=== PATIENT | female | born 1995 | race African-American/Black ===

== ENCOUNTER 2017-03-29 08:41 | Emergency (ER) | payer SELFPAY | END 2017-03-29 09:15 | disposition home or self-care (01) | LOC: ERS 08:41 | DX: B34.9 Viral infection, unspecified (principal) | CPT/HCPCS: 99283 ==

== ENCOUNTER 2017-03-31 08:48 | Emergency (ER) | payer SELFPAY | END 2017-03-31 09:52 | disposition home or self-care (01) | LOC: ERS 08:48 | DX: J11.1 Influenza due to unidentified influenza virus with other respiratory manifestations (principal) | CPT/HCPCS: 99283 ==

== ENCOUNTER 2017-07-25 09:26 | Emergency (ER) | payer SELFPAY | END 2017-07-25 10:11 | disposition home or self-care (01) | LOC: ERS 09:26 | DX: H11.31 Conjunctival hemorrhage, right eye (principal) | CPT/HCPCS: 99283 ==

== ENCOUNTER 2017-08-26 16:42 | Emergency (ER) | payer SELFPAY ==
[2017-08-26 17:07] LABS: Bilirubin Negative (Negative); Blood, Urine Negative (Negative); Clarity CLOUDY (Clear); Glucose, Urine (Dipstick) Negative (Negative); Leukocyte Negative (Negative); Nitrite Negative (Negative); Protein, Urine (Dipstick) Trace mg/dL (Neg-Trace); Specific Gravity, Urine 1.017 (1.002-1.036)
[2017-08-26 17:09] LABS: Pregnancy Test - Urine (BHCG) Negative (Negative); Pregu Control Background? CLEAR/WHITE (CLR/WHITE); Pregu Control Bar Appear? YES (CONTROL BAR); Specific Gravity 1.017 (1.002-1.036)
[2017-08-26] MEDS ORDERED: Ondansetron ODT 4 MG TAB ONE (17:17)
== END 2017-08-26 17:50 | disposition home or self-care (01) ==
LOC: ERS 16:42
DX: R11.0 Nausea (principal)
CPT/HCPCS: 81003; 81025; 99283; Q0162

== ENCOUNTER 2018-05-05 14:02 | Emergency (ER) | payer MEDICAID, SELFPAY ==
[2018-05-05 14:29] LABS: Bilirubin Negative (Negative); Blood, Urine Negative (Negative); Clarity CLEAR (Clear); Glucose, Urine (Dipstick) Negative (Negative); Leukocyte Negative (Negative); Nitrite Negative (Negative); Protein, Urine (Dipstick) Negative (Neg-Trace); Specific Gravity, Urine 1.015 (1.002-1.036)
[2018-05-05 14:34] LABS: #Lymphocytes 1.3 thou/uL (1.20-3.40); #Monocytes 0.6 thou/uL (0.11-0.59); #Neutrophils 4.7 thou/uL (1.40-6.50); %Basophils 0.5 % (0.0-1.0); %Eosinophils 0.5 % (0.0-10.0); %Lymphocytes 19.4 % (21.0-51.0); %Monocytes 8.6 % (0.0-10.0); %Neutrophils 71.1 % (42.0-75.0); Hemoglobin 12.7 g/dL (12.0-16.0); Mean Corpuscular HGB CONC 33.6 g/dL (32.0-36.0); Mean Corpuscular Hemoglobin 29.9 pg (27.0-31.0); Mean Corpuscular Volume 88.9 fL (78.0-98.0); Mean Platelet Volume 7.9 fL (7.4-10.4); Platelet Count 350 thou/uL (130-400); RBC Distribution Width 11.1 % (11.5-14.5); Red Blood Cell (RBC) Count 4.24 mill/uL (4.20-5.40); White Blood Cell (WBC) Count 6.6 thou/uL (4.8-10.8)
[2018-05-05 14:55] LABS: ALT (SGPT) Less than 7 U/L (8-55); AST (SGOT) 12 U/L (5-34); Albumin 4.3 g/dL (3.5-5.0); Alkaline Phosphatase 60 U/L (40-150); Anion Gap 13 mmol/L (10-20); BUN (Urea Nitrogen) 8 mg/dL (7.0-18.7); Bilirubin, Total 0.5 mg/dL (0.2-1.2); Calc. Creatinine Clearance 0 mL/min (70-130); Calcium 9.7 mg/dL (7.8-10.44); Carbon Dioxide 23 mmol/L (22-29); Chloride 104 mmol/L (98-107); Estimated GFR-MDRD Greater than 90; Globulin 3.2 g/dL (2.4-3.5); Glucose 86 mg/dL (70-105); Potassium 3.8 mmol/L (3.5-5.1); Protein, Total 7.5 g/dL (6.0-8.3); Sodium 136 mmol/L (136-145)
--- NOTE | 2018-05-05 16:51 | ULT ---
OBSTETRIC SONOGRAM TRANSABDOMINAL AND TRANSVAGINAL IMAGING WITH DUPLEX EVALUATION 05/05/18 HISTORY: Pelvic pain. Early . FINDINGS: Urinary bladder is incompletely distended. Gestational sac within the endometrial cavity contains a s mall yolk sac. pole not visualized. Measurements correlate with 5 weeks, 2 days gestational siz e. Small amount of fluid within the endometrial cavity outside of the gestational sac. No free fluid in the pelvis. Right ovary not well visualized. Left ovary is 3.1 cm with good color and spectral doppler flow. IMPRESSION: Very early gestational sac within the endometrial cavity, correlating with 5 weeks, 2 days gestationa l age. Some subchorionic hemorrhage is apparent. pole not yet visualized. Please consider close d continued clinical and sonographic followup. POS: [facility]
== END 2018-05-05 18:15 | disposition home or self-care (01) ==
LOC: ERS 14:02
DX: O99.89 Other specified diseases and conditions complicating pregnancy, childbirth and the puerperium (principal); R10.9 Unspecified abdominal pain; Z3A.01 Less than 8 weeks gestation of pregnancy
CPT/HCPCS: 36415; 76856; 80053; 81003; 84702; 85025; 86900; 86901

== ENCOUNTER 2018-05-31 17:50 | Emergency (ER) | payer MEDICAID, OTHER ==
[2018-05-31] MEDS ORDERED: Acetaminophen 325 MG TAB ONE (18:09)
[2018-05-31 18:46] LABS: #Basophils 0.1 thou/uL (0.0-0.2); #Lymphocytes 1.3 thou/uL (1.20-3.40); #Monocytes 0.7 thou/uL (0.11-0.59); #Neutrophils 3.5 thou/uL (1.40-6.50); %Basophils 1.5 % (0.0-1.0); %Eosinophils 0.7 % (0.0-10.0); %Lymphocytes 23.9 % (21.0-51.0); %Monocytes 12.3 % (0.0-10.0); %Neutrophils 61.7 % (42.0-75.0); Hemoglobin 12.5 g/dL (12.0-16.0); Mean Corpuscular HGB CONC 34.6 g/dL (32.0-36.0); Mean Corpuscular Hemoglobin 30.9 pg (27.0-31.0); Mean Corpuscular Volume 89.4 fL (78.0-98.0); Mean Platelet Volume 7.9 fL (7.4-10.4); Platelet Count 308 thou/uL (130-400); RBC Distribution Width 11.2 % (11.5-14.5); Red Blood Cell (RBC) Count 4.03 mill/uL (4.20-5.40); White Blood Cell (WBC) Count 5.6 thou/uL (4.8-10.8)
[2018-05-31 19:05] LABS: Bilirubin Negative (Negative); Blood, Urine Negative (Negative); Clarity CLEAR (Clear); Glucose, Urine (Dipstick) Negative (Negative); Leukocyte Negative (Negative); Nitrite Negative (Negative); Protein, Urine (Dipstick) Negative (Neg-Trace); Specific Gravity, Urine 1.004 (1.002-1.036); Urobilinogen 0.2 mg/dL (0.2-1.0)
--- NOTE | 2018-05-31 20:07 | ULT ---
OB ULTRASOUND: History: Pelvic cramping and pain. Patient with known history of . Technique: Multiple longitudinal and transverse images of an intrauterine is obtained using a multihertz curvilinear transducer. Real-time, color flow, and spectral waveform doppler analysis p erformed. FINDINGS: The uterus measures 9.2 x 5.4 x 6.6 cm. There is a viable intrauterine seen. The crown rump length measures 2.2 cm giving a gestational age of 8 weeks 6 days. Gestational sac measures 3.7 cm g iving a gestational age of 9 weeks 0 days. Yolk sac is present. Cardiac activity is seen measuring 17 5 beats/minute. Both ovaries are visualized. Right ovary measures 4.3 x 2.0 x 2.5 cm and the left ovary measuring 3.6 x 1.7 x 1.7 cm. Good blood flow is seen in both ovaries. IMPRESSION: Viable IUP. Estimated gestational age is 9 weeks 0 days with an SHANTI 10-20-19. POS: [facility]
[2018-06-03 00:46] LABS: Chlamydia by PCR Not Detected (NotDetected); GC by PCR Not Detected (NotDetected)
== END 2018-05-31 21:05 | disposition home or self-care (01) ==
LOC: ERS 17:50
DX: O23.591 Infection of other part of genital tract in pregnancy, first trimester (principal); O99.89 Other specified diseases and conditions complicating pregnancy, childbirth and the puerperium; R10.32 Left lower quadrant pain; Z3A.09 9 weeks gestation of pregnancy
CPT/HCPCS: 36415; 76856; 81003; 84702; 85025; 86900; 86901; 87086; 87480; 87491; 87510; 87591; 87660; 93976

== ENCOUNTER 2018-06-09 22:42 | Emergency (ER) | payer OTHER ==
[2018-06-09 23:16] LABS: Bilirubin Negative (Negative); Blood, Urine Negative (Negative); Clarity CLOUDY (Clear); Glucose, Urine (Dipstick) Negative (Negative); Leukocyte Negative (Negative); Nitrite Negative (Negative); Protein, Urine (Dipstick) Negative (Neg-Trace); Specific Gravity, Urine 1.011 (1.002-1.036); Urobilinogen 0.2 mg/dL (0.2-1.0); pH, Urine 5.5 (5.0-9.0)
[2018-06-09 23:23] LABS: #Lymphocytes 1.5 thou/uL (1.20-3.40); #Monocytes 0.5 thou/uL (0.11-0.59); #Neutrophils 4.5 thou/uL (1.40-6.50); %Basophils 0.6 % (0.0-1.0); %Eosinophils 0.5 % (0.0-10.0); %Monocytes 8.2 % (0.0-10.0); %Neutrophils 67.7 % (42.0-75.0); Hemoglobin 12.2 g/dL (12.0-16.0); Mean Corpuscular HGB CONC 34.4 g/dL (32.0-36.0); Mean Corpuscular Hemoglobin 30.3 pg (27.0-31.0); Platelet Count 280 thou/uL (130-400); RBC Distribution Width 10.9 % (11.5-14.5); Red Blood Cell (RBC) Count 4.02 mill/uL (4.20-5.40); White Blood Cell (WBC) Count 6.6 thou/uL (4.8-10.8)
--- NOTE | 2018-06-10 08:23 | ULT ---
PELVIC ULTRASOUND WITH DOPPLER COLOR FLOW: ABDOMEN ULTRASOUND , LIMITED: INDICATION: Left lower abdominal/left lower quadrant pain. COMPARISON: Reference is made to 05/31/2018 exam. FINDINGS: A live intrauterine gestation is present which by ultrasound imaging corresponds to a 9-week 6-day ge station. cardiac activity is documented at 168 b.p.m. On the basis of sonographic imaging, es timated date of delivery of 01/07/2019. There is no evidence of subchorionic hemorrhage. Doppler as sessment reveals flow to the right ovary. The left ovary is not visualized for comment. Lopez scale and Doppler color flow imaging of the left lower quadrant is performed which reveals heter ogeneity and persistent bowel content which precludes reliably assessment. No obvious focal fluid co llection is discerned within this region. IMPRESSION: 1. Early live intrauterine gestation as above. Recommend continued imaging followup as clinically i ndicated. 2. Left lower abdominal ultrasound, limited. 3. Persistent heterogeneity of the left lower quadrant related to bowel gas precluding reliable visu alization of this region. No focal fluid collection is identified. POS: [facility]
== END 2018-06-10 02:32 | disposition home or self-care (01) ==
LOC: ERS 22:42
DX: O21.9 Vomiting of pregnancy, unspecified (principal); Z3A.10 10 weeks gestation of pregnancy
CPT/HCPCS: 36415; 76856; 81003; 84702; 85025; 93976

== ENCOUNTER 2018-06-17 13:41 | Emergency (ER) | payer OTHER ==
[2018-06-17 14:56] LABS: #Basophils 0.1 thou/uL (0.0-0.2); #Lymphocytes 1.4 thou/uL (1.20-3.40); #Monocytes 0.7 thou/uL (0.11-0.59); #Neutrophils 4.2 thou/uL (1.40-6.50); %Eosinophils 0.5 % (0.0-10.0); %Monocytes 10.2 % (0.0-10.0); %Neutrophils 66.3 % (42.0-75.0); Mean Corpuscular HGB CONC 34.4 g/dL (32.0-36.0); Mean Corpuscular Hemoglobin 30.5 pg (27.0-31.0); Mean Corpuscular Volume 88.5 fL (78.0-98.0); Platelet Count 293 thou/uL (130-400); RBC Distribution Width 11.1 % (11.5-14.5); Red Blood Cell (RBC) Count 4.25 mill/uL (4.20-5.40); White Blood Cell (WBC) Count 6.3 thou/uL (4.8-10.8)
[2018-06-17 15:02] LABS: BHCG - Serum POSITIVE (NEGATIVE); Pregs Control Background? CLEAR/WHITE (CLR/WHITE); Pregs Control Bar Appear? YES (CONTROL BAR)
[2018-06-17 15:09] LABS: ALT (SGPT) 13 U/L (8-55); AST (SGOT) 15 U/L (5-34); Alkaline Phosphatase 47 U/L (40-150); Anion Gap 8 mmol/L (10-20); BUN (Urea Nitrogen) 8 mg/dL (7.0-18.7); Bilirubin, Total 0.4 mg/dL (0.2-1.2); Calc. Creatinine Clearance 0 mL/min (70-130); Calcium 9.6 mg/dL (7.8-10.44); Carbon Dioxide 26 mmol/L (22-29); Chloride 102 mmol/L (98-107); Estimated GFR-MDRD Greater than 90; Globulin 3.2 g/dL (2.4-3.5); Glucose 79 mg/dL (70-105); Lipase 24 U/L (8-78); Potassium 4.2 mmol/L (3.5-5.1); Protein, Total 7.2 g/dL (6.0-8.3); Sodium 132 mmol/L (136-145)
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
[2018-06-17 15:56] LABS: Bilirubin Negative (Negative); Blood, Urine Negative (Negative); Clarity CLOUDY (Clear); Glucose, Urine (Dipstick) Negative (Negative); Leukocyte Negative (Negative); Nitrite Negative (Negative); Protein, Urine (Dipstick) Negative (Neg-Trace); Specific Gravity, Urine 1.006 (1.002-1.036); Urobilinogen 0.2 mg/dL (0.2-1.0); pH, Urine 6.5 (5.0-9.0)
== END 2018-06-17 16:13 | disposition home or self-care (01) ==
LOC: ERS 13:41
DX: O99.89 Other specified diseases and conditions complicating pregnancy, childbirth and the puerperium (principal); R10.9 Unspecified abdominal pain; Z3A.11 11 weeks gestation of pregnancy
CPT/HCPCS: 36415; 76856; 80053; 81003; 83690; 84702; 84703; 85025; 86900; 86901; 87086

== ENCOUNTER 2018-06-23 22:37 | Emergency (ER) | payer OTHER ==
[2018-06-23 23:04] LABS: Bilirubin Negative (Negative); Blood, Urine Negative (Negative); Clarity CLEAR (Clear); Glucose, Urine (Dipstick) Negative (Negative); Leukocyte Negative (Negative); Nitrite Negative (Negative); Protein, Urine (Dipstick) Negative (Neg-Trace); Specific Gravity, Urine 1.007 (1.002-1.036); Urobilinogen 0.2 mg/dL (0.2-1.0)
[2018-06-23 23:14] LABS: #Basophils 0.1 thou/uL (0.0-0.2); #Lymphocytes 1.5 thou/uL (1.20-3.40); #Monocytes 0.5 thou/uL (0.11-0.59); #Neutrophils 3.9 thou/uL (1.40-6.50); %Eosinophils 0.2 % (0.0-10.0); %Lymphocytes 25.1 % (21.0-51.0); %Monocytes 8.6 % (0.0-10.0); %Neutrophils 65.1 % (42.0-75.0); Hemoglobin 11.8 g/dL (12.0-16.0); Mean Corpuscular HGB CONC 34.8 g/dL (32.0-36.0); Mean Corpuscular Hemoglobin 30.4 pg (27.0-31.0); Mean Corpuscular Volume 87.3 fL (78.0-98.0); Mean Platelet Volume 8.1 fL (7.4-10.4); Platelet Count 283 thou/uL (130-400); Red Blood Cell (RBC) Count 3.89 mill/uL (4.20-5.40)
[2018-06-23 23:36] LABS: ALT (SGPT) 15 U/L (8-55); AST (SGOT) 17 U/L (5-34); Alkaline Phosphatase 41 U/L (40-150); Anion Gap 11 mmol/L (10-20); BUN (Urea Nitrogen) 7 mg/dL (7.0-18.7); Bilirubin, Total 0.3 mg/dL (0.2-1.2); Calc. Creatinine Clearance 0 mL/min (70-130); Calcium 9.6 mg/dL (7.8-10.44); Carbon Dioxide 26 mmol/L (22-29); Chloride 102 mmol/L (98-107); Estimated GFR-MDRD Greater than 90; Glucose 75 mg/dL (70-105); Potassium 3.5 mmol/L (3.5-5.1); Sodium 135 mmol/L (136-145)
== END 2018-06-24 00:49 | disposition home or self-care (01) ==
LOC: ERS 22:37
DX: O99.89 Other specified diseases and conditions complicating pregnancy, childbirth and the puerperium (principal); R10.30 Lower abdominal pain, unspecified; Z3A.12 12 weeks gestation of pregnancy
CPT/HCPCS: 80053; 81003; 84702; 85025; 99284

== ENCOUNTER 2018-07-14 00:49 | Emergency (ER) | payer OTHER ==
[2018-07-14 01:33] LABS: #Basophils 0.1 thou/uL (0.0-0.2); #Lymphocytes 1.5 thou/uL (1.20-3.40); #Monocytes 0.5 thou/uL (0.11-0.59); #Neutrophils 5.5 thou/uL (1.40-6.50); %Basophils 0.9 % (0.0-1.0); %Eosinophils 0.4 % (0.0-10.0); %Neutrophils 71.7 % (42.0-75.0); Hemoglobin 12.5 g/dL (12.0-16.0); Mean Corpuscular HGB CONC 34.9 g/dL (32.0-36.0); Mean Corpuscular Hemoglobin 30.5 pg (27.0-31.0); Mean Corpuscular Volume 87.6 fL (78.0-98.0); Mean Platelet Volume 8.4 fL (7.4-10.4); Platelet Count 283 thou/uL (130-400); RBC Distribution Width 11.4 % (11.5-14.5); Red Blood Cell (RBC) Count 4.09 mill/uL (4.20-5.40); White Blood Cell (WBC) Count 7.7 thou/uL (4.8-10.8)
[2018-07-14 01:51] LABS: ALT (SGPT) 14 U/L (8-55); AST (SGOT) 14 U/L (5-34); Albumin 3.7 g/dL (3.5-5.0); Alkaline Phosphatase 45 U/L (40-150); Anion Gap 12 mmol/L (10-20); BUN (Urea Nitrogen) 6 mg/dL (7.0-18.7); Bilirubin, Total 0.3 mg/dL (0.2-1.2); Calc. Creatinine Clearance 0 mL/min (70-130); Calcium 9.5 mg/dL (7.8-10.44); Carbon Dioxide 23 mmol/L (22-29); Chloride 104 mmol/L (98-107); Estimated GFR-MDRD Greater than 90; Globulin 3.2 g/dL (2.4-3.5); Glucose 96 mg/dL (70-105); Potassium 3.5 mmol/L (3.5-5.1); Protein, Total 6.9 g/dL (6.0-8.3); Sodium 135 mmol/L (136-145)
[2018-07-14 01:57] LABS: Pregnancy Test - Urine (BHCG) POSITIVE (Negative); Pregu Control Background? CLEAR/WHITE (CLR/WHITE); Pregu Control Bar Appear? YES (CONTROL BAR)
[2018-07-14 01:58] LABS: Bilirubin Negative (Negative); Blood, Urine Negative (Negative); Clarity CLEAR (Clear); Glucose, Urine (Dipstick) Negative (Negative); Leukocyte Negative (Negative); Nitrite Negative (Negative); Protein, Urine (Dipstick) Negative (Neg-Trace); Specific Gravity 1.012 (1.002-1.036); Specific Gravity, Urine 1.012 (1.002-1.036); Urobilinogen 0.2 mg/dL (0.2-1.0); pH, Urine 5.5 (5.0-9.0)
--- NOTE | 2018-07-14 09:56 | ULT ---
PRELIMINARY REPORT/[facility]/EMERGENTY AFTER-HOURS PROCEDURE US , Limited EXAM DATE/TIME: 07/14/2018 2:53 AM CLINICAL HISTORY: 22 years old, female; pain, second trimester gestational age 15w 2d; Antepartum complicatio ns; Pelvic cramping pain, constipation, no vaginal bleeding.. b-hcg = 18784. TECHNIQUE: Imaging protocol: Real-time ultrasound of the maternal uterus with image documentation. Exam focused on the clinical indication. COMPARISON: No relevant prior studies available. FINDINGS: BPD: 2.88 cm. HC: 11.41 cm. AC: 9.08 cm. FL: 1.71 cm. Gestational age: 15 weeks, 2 days. Placental position: Anterior. No placenta previa. GRABIEL: Normal. presentation: Transverse. EDC: 01/03/2019. heart rate: 150 bpm. spine, kidneys, 4-chamber heart, stomach, cord insertion, and 3-vessel cord identified. IMPRESSION: 1. Single live intrauterine with gestational age of 15 weeks, 2 days. 2. heart rate equals 150 bpm. 3. Normal amniotic fluid volume. 4. No placenta previa. Thank you for allowing us to participate in the care of your patient. Dictated and Authenticated by: Marcelo Rosado MD 07/14/2018 3:40 AM Central Time ([place] & [place]) FINAL REPORT PELVIC ULTRASOUND WITH DOPPLER: I agree with the preliminary report provided. There is a single live intrauterine gestation. Cervical length was 5.4 cm. There is no evidence of previa; however, the anterior placenta is slightly low-lying with the tip terminating approximately 1 cm from the cervix. Visualized structures appeared within normal limits. The GRABIEL appeared qu alitatively within normal limits. IMPRESSION: I agree with the preliminary report provided. The placenta, although not demonstrated as evidence of previa, is slightly low-lying. A followup examination in 2-3 weeks may be helpful to document posit ioning. POS: [facility]
== END 2018-07-14 03:54 | disposition home or self-care (01) ==
LOC: ERS 00:49
DX: O99.612 Diseases of the digestive system complicating pregnancy, second trimester (principal); K59.00 Constipation, unspecified; Z3A.15 15 weeks gestation of pregnancy
CPT/HCPCS: 76856; 80053; 81003; 81025; 84702; 85025; 93976

== ENCOUNTER 2018-07-24 15:41 | Emergency (ER) | payer OTHER ==
[2018-07-24 17:17] LABS: Bilirubin Negative (Negative); Blood, Urine Negative (Negative); Clarity CLEAR (Clear); Glucose, Urine (Dipstick) Negative (Negative); Leukocyte Negative (Negative); Nitrite Negative (Negative); Protein, Urine (Dipstick) Negative (Neg-Trace); Specific Gravity, Urine 1.011 (1.002-1.036); Urobilinogen 0.2 mg/dL (0.2-1.0)
[2018-07-24] MEDS ORDERED: Acetaminophen 500 MG TAB ONE (17:17)
== END 2018-07-24 17:38 | disposition home or self-care (01) ==
LOC: ERS 15:41
DX: O99.282 Endocrine, nutritional and metabolic diseases complicating pregnancy, second trimester (principal); E86.0 Dehydration; Z3A.16 16 weeks gestation of pregnancy
CPT/HCPCS: 81003; 99284

== ENCOUNTER 2018-08-18 08:20 | Outpatient (CLI) | payer OTHER ==
--- NOTE | 2018-08-18 09:50 | ULT ---
Complete obstetrical ultrasound INDICATION: Evaluate anatomy TECHNIQUE: Grayscale, M-mode Doppler and Doppler images were obtained of the abdomen and pelvis to ev aluate the patient's known . COMPARISON: Prior obstetrical ultrasound dated July 14, 2018 FINDINGS: Number of gestations: Single. Presentation: Transverse. Placental location: Anterior Previa: No evidence for previa. The tip of the placenta is 5.1 cm from the level of the cervix. Cervical length: 3.5 cm GRABIEL: 11.99 cm. heart rate: 143 bpm bpm. Biparietal diameter: 4.41cm, 19 weeks 3 days, Not calculated.. Head circumference: 16.65 cm, 19 weeks 3 days, Not calculated. Abdominal circumference: 13.92 cm, 19 weeks 3 days, Not calculated. Femoral length: 3.02cm, 19 weeks 3 days, Not calculated. Estimated weight: 286 g g +/- 42g 0 lbs. 10 oz., 8th percentile SURVEY: head: Normal appearing. Cerebellum: Normal appearing. Cisterna magna: Not well seen Lateral ventricles: Normal appearing. 4 chamber heart: Normal appearing.. Stomach: Not well demonstrated. Kidneys: Not well seen Cord insertion: Not well seen Bladder: Normal appearing. Spine: Not well seen Lips and nose: Normal appearing. Extremities: Normal appearing. Three-vessel CORD: Normal appearing. The average gestational age by ultrasound is 19 weeks 3 dayswith estimated due date of January 09 19. The estimated dates by clinical data is 20 weeks and 2 dayswith estimated due date of January 03 9. IMPRESSION: 1. Single live intrauterine gestation with size and dates as above. 2. Small for gestational age. 3. Limitations to the survey as above. Follow-up examination in 1-2 weeks is recommended to ree valuate the cisterna magna, stomach, spine, kidneys and cord insertion.
== END 2018-08-18 08:21 | disposition home or self-care (01) ==
LOC: BICULT 08:20
PROVIDERS: ATTEND Family Medicine
DX: Z34.02 Encounter for supervision of normal first pregnancy, second trimester (principal); Z3A.19 19 weeks gestation of pregnancy
CPT/HCPCS: 76805

== ENCOUNTER 2018-09-05 17:00 | Emergency (ER) | payer OTHER ==
[2018-09-05] MEDS ORDERED: Acetaminophen 325 MG TAB ONE (18:35)
== END 2018-09-05 18:55 | disposition home or self-care (01) ==
LOC: ERS 17:00
DX: H92.02 Otalgia, left ear (principal)
CPT/HCPCS: 99282

== ENCOUNTER 2018-09-14 07:50 | Day surgery (SDC) | payer OTHER ==
[2018-09-14 08:17] VITALS: BP 117/79; TEMP 98.8; BMI 27.1
[2018-09-14] MEDS ORDERED: hydrALAZINE 20 MG/ML VIAL SLOW IVP PRN (08:30)
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
[2018-09-14 09:20] LABS: Bilirubin Negative (Negative); Blood, Urine Negative (Negative); Clarity CLEAR (Clear); Glucose, Urine (Dipstick) Negative (Negative); Leukocyte Negative (Negative); Nitrite Negative (Negative); Protein, Urine (Dipstick) Negative (Neg-Trace)
[2018-09-14 09:23] LABS: Bacteria/HPF None Seen HPF (None Seen); Hyaline Casts/LPF 0-3 HYALINE CAST LPF (0-3 Hyaline); Pathc Cast-AUWi Flag 0.54 (0-2.49); RBC/HPF None Seen HPF (0-3); Squamous Epithelial 0-3 HPF (0-3); WBC/HPF 0-3 HPF (0-3)
[2018-09-14 09:32] LABS: Urine Culture Reflex No No
[2018-09-14 09:41] LABS: FFN Internal QC Analyzer PASS (PASS); FFN Internal QC Cassette PASS (PASS); Fetal Fibronectin Negative (Negative)
--- NOTE | 2018-09-14 09:47 | ULT ---
Exam: Limited OB ultrasound for cervical length only 24 weeks , cervical length evaluation Using translabial technique, cervical length approximates 3.4-3.6 cm. Cephalic presentation. Anterior placenta. Dr. Sanchez was notified of the findings per nuclear cardiology technologist. IMPRESSION: Cervical length 3.4-3.6 cm.
--- NOTE | 2018-09-14 10:19 | PDOC.EVN ---
Event Note - Event Note Event Note: Follow up: FFN negative Cervical length was 3.5cm Social work has seen her. Physical exam of the face does not reveal any evidence of bruising or fracture. OK for Dr Pham follow up
== END 2018-09-14 10:35 | disposition home or self-care (01) ==
LOC: L&D/OP 07:50
PROVIDERS: ATTEND Family Medicine
DX: O99.89 Other specified diseases and conditions complicating pregnancy, childbirth and the puerperium (principal); R10.30 Lower abdominal pain, unspecified; O99.342 Other mental disorders complicating pregnancy, second trimester; F32.9 Major depressive disorder, single episode, unspecified; Z3A.24 24 weeks gestation of pregnancy
CPT/HCPCS: 51701; 76815; 81001; 82731; 99283

== ENCOUNTER 2018-09-18 04:35 | Day surgery (SDC) | payer OTHER ==
[2018-09-18 05:08] VITALS: BP 122/83; TEMP 98.6; BMI 27.1
[2018-09-18 06:04] LABS: Bilirubin Negative (Negative); Blood, Urine Negative (Negative); Clarity Clear (Clear); Glucose, Urine (Dipstick) Normal (Negative); Leukocyte Negative Leu/uL (Negative); Nitrite Negative (Negative); Protein, Urine (Dipstick) Negative (Neg-Trace); RBC/HPF 0-3 HPF (0-3); Urobilinogen Normal mg/dL (Less than 2); WBC/HPF 0-3 HPF (0-3)
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
== END 2018-09-18 06:39 | disposition home or self-care (01) ==
LOC: L&D/OP 04:35
PROVIDERS: ATTEND Family Medicine
DX: O99.89 Other specified diseases and conditions complicating pregnancy, childbirth and the puerperium (principal); R10.30 Lower abdominal pain, unspecified; Z3A.24 24 weeks gestation of pregnancy
CPT/HCPCS: 81003; 99283

== ENCOUNTER 2018-09-20 11:10 | Emergency (ER) | payer OTHER ==
[2018-09-20 11:56] LABS: #Monocytes 0.6 thou/uL (0.11-0.59); #Neutrophils 4.5 thou/uL (1.40-6.50); %Basophils 0.3 % (0.0-1.0); %Eosinophils 0.3 % (0.0-10.0); %Lymphocytes 15.8 % (21.0-51.0); %Monocytes 9.2 % (0.0-10.0); %Neutrophils 74.5 % (42.0-75.0); Hemoglobin 11.9 g/dL (12.0-16.0); Mean Corpuscular HGB CONC 34.7 g/dL (32.0-36.0); Mean Corpuscular Hemoglobin 31.8 pg (27.0-31.0); Mean Corpuscular Volume 91.6 fL (78.0-98.0); Mean Platelet Volume 8.2 fL (7.4-10.4); Platelet Count 244 thou/uL (130-400); RBC Distribution Width 11.7 % (11.5-14.5); Red Blood Cell (RBC) Count 3.76 mill/uL (4.20-5.40); White Blood Cell (WBC) Count 6.1 thou/uL (4.8-10.8)
--- NOTE | 2018-09-20 11:58 | RAD ---
XR Chest Pa Lat STANDARD History: Midsternal chest pain Comparison: None. Findings: Lungs are clear. No pneumothorax. No effusion. Cardiac silhouette and mediastinal contours are within normal limits. Impression: No acute intrathoracic abnormality.
[2018-09-20 12:18] LABS: ALT (SGPT) 210 U/L (8-55); AST (SGOT) 112 U/L (5-34); Albumin 3.1 g/dL (3.5-5.0); Alkaline Phosphatase 108 U/L (40-150); Anion Gap 9 mmol/L (10-20); BUN (Urea Nitrogen) 4 mg/dL (7.0-18.7); Bilirubin, Total 0.4 mg/dL (0.2-1.2); Calc. Creatinine Clearance 0 mL/min (70-130); Calcium 9.4 mg/dL (7.8-10.44); Carbon Dioxide 27 mmol/L (22-29); Chloride 105 mmol/L (98-107); Estimated GFR-MDRD Greater than 90; Glucose 104 mg/dL (70-105); Potassium 3.7 mmol/L (3.5-5.1); Protein, Total 6.1 g/dL (6.0-8.3); Sodium 137 mmol/L (136-145)
[2018-09-20 12:39] LABS: Bilirubin Negative (Negative); Blood, Urine Negative (Negative); Clarity Turbid (Clear); Glucose, Urine (Dipstick) Normal (Negative); Leukocyte Negative Leu/uL (Negative); Nitrite Negative (Negative); Protein, Urine (Dipstick) Negative (Neg-Trace)
[2018-09-20] MEDS ORDERED: Acetaminophen 500 MG TAB ONE (12:44)
== END 2018-09-20 13:00 | disposition home or self-care (01) ==
LOC: ERS 11:10
DX: O99.89 Other specified diseases and conditions complicating pregnancy, childbirth and the puerperium (principal); R10.9 Unspecified abdominal pain; Z3A.25 25 weeks gestation of pregnancy
CPT/HCPCS: 36415; 71046; 80053; 81003; 85025; 93005

== ENCOUNTER 2018-09-22 09:33 | Outpatient (CLI) | payer OTHER ==
--- NOTE | 2018-09-22 11:23 | ULT ---
ULTRASOUND OBSTETRICAL COMPLETE: DATE: 09/22/2018 HISTORY: Z34.02 encounter for supervision of normal first in second trimester, 22-year-old female. Incomplete visualization of anatomy on previous ultrasound of 08/18/2018. FINDINGS: number: prakash lie: Breech Maternal cervix: 3.5 cm. Closed. Placenta: Anterior. No placenta previa. Amniotic fluid volume: GRABIEL = 12cm heart rate: 138 bpm The following anatomy is visualized, with no evidence of anomalies: Cerebellum, cisterna magna, kidneys, cord insertion, bladder, nose and lips, and three-vessel cord. biometry: Biparietal diameter (BPD): 5.8 cm 24 w 0 d Head circumference (HC): 22.2 cm 24 w 2 d Abdominal circumference (AC): 18.4 cm 23 w 2 d Femur length (FL): 4.3 cm 24 w 1 d Average ultrasound age (AUA): 24 w 0 d Estimated date of delivery (SHANTI): 01/12/2019 Estimated weight (EFW): 613 g +/- 90 g IMPRESSION: 1) Live 2nd trimester intrauterine gestation. 2) Estimated gestational age of 24 weeks, 0 days 3) breech lie. 4) all anatomy not visualized on prior ultrasound is demonstrated on the current ultrasound, wi th the exception of the stomach.
== END 2018-09-22 09:34 | disposition home or self-care (01) ==
LOC: BICULT 09:33
PROVIDERS: ATTEND Family Medicine
DX: Z34.02 Encounter for supervision of normal first pregnancy, second trimester (principal); Z3A.24 24 weeks gestation of pregnancy
CPT/HCPCS: 76816

== ENCOUNTER 2018-09-27 18:28 | Day surgery (SDC) | payer OTHER ==
[2018-09-27 18:55] VITALS: BP 113/76; TEMP 98.7
[2018-09-27 18:57] VITALS: BMI 27.2
[2018-09-27] MEDS ORDERED: hydrALAZINE 20 MG/ML VIAL SLOW IVP PRN (21:15)
--- NOTE | 2018-09-27 22:39 | HP ---
PRIMARY OB: Sebastián Pham MD CHIEF COMPLAINT: Lower abdominal pain. HISTORY OF PRESENT ILLNESS: The patient is a 22-year-old, G1, P0 female with an intrauterine at 26 weeks gestation, who is presenting today to Labor and Delivery after beginning to experience bilateral lower pelvic pain today about noon. The patient reports that she does have this pain often and on. It would go away for a few days, and come back. Today, it just had been hurting in her lower abdomen and came in for evaluation partly for that pain and partly her baby had not been moving as much as she was used to. The patient has since been placed on the monitor here in Labor and Delivery and has been feeling her baby move appropriately. The patient reports that this pain is associated with activity and movement that if she sits still that it is present but not severe, but when she tries to get up from the couch, out of car, up from bed that she will feel this sharp pelvic pain. The patient works full-time at [employer] and has been off for the last couple days. The patient reports that she has been having pains that come and go, perhaps once an hour, lasting about 5 to 10 minutes. She denies any recent illness with fever or cough. Denies fall. Denies headache, chest pain, or shortness of breath. The patient does have reports that she has had a poor appetite in the entire . However, denies nausea or vomiting. Denies constipation or diarrhea. Reports that she does have a rash that has been developing throughout the that does not itch or cause her any discomfort, but is present on her arms, her breasts, her upper abdomen, and her back. The patient denies hip problems, knee problems, or muscle weakness. Denies vaginal bleeding or leakage of fluid. Denies urinary urgency or frequency. PAST MEDICAL HISTORY: Negative. PAST SURGICAL HISTORY: Appendectomy. SOCIAL HISTORY: Denies drug, alcohol, or tobacco use. The patient does report that she is having some personal problems that have been causing her a lot of stress and became tearful at this time. OB LABS: Unavailable at time of dictation. MEDICATIONS: vitamins. REVIEW OF SYSTEMS: Per HPI. PHYSICAL EXAMINATION: VITAL SIGNS: Blood pressure 121/75, heart rate of 67, respiratory rate of 16, saturating 100% on room air, temperature 98.6. GENERAL: She appears to be in no acute distress. She is alert, oriented, cooperative, pleasant to interact with. HEAD: Normocephalic, atraumatic. LUNGS: Clear to auscultation bilaterally. HEART: Has regular rate and rhythm. ABDOMEN: Gravid, soft. She does have some tenderness in the inguinal region bilaterally with movement and deviation of the uterus. EXTREMITIES: Nontender, nonedematous. : Exam has been deferred. heart tracing shows fetus with a baseline in the 140s with moderate long-term variability, appropriate for 26 weeks gestation. Her tocometer over the course of an hour and a half did not demonstrate any contractions. ASSESSMENT AND PLAN: The patient is a 22-year-old female with an intrauterine at 26 weeks, likely experiencing musculoskeletal pains of . We did academic counselor her to take two Tylenol 3 times a day on a regular basis for the next few days to see that it improves her discomfort. Also recommended using a belly support as the patient does work full-time and this may help assist with the discomfort. The patient has an appointment to see Dr. Pham on the , which we have encouraged that she keep. Fetus has a category 1 tracing appropriate for 26 weeks gestation. Job ID: [id number]
== END 2018-09-27 20:40 | disposition home or self-care (01) ==
LOC: L&D/OP 18:28
PROVIDERS: ATTEND Family Medicine
DX: O99.89 Other specified diseases and conditions complicating pregnancy, childbirth and the puerperium (principal); R10.2 Pelvic and perineal pain; R21 Rash and other nonspecific skin eruption; Z3A.26 26 weeks gestation of pregnancy
CPT/HCPCS: 99282

== ENCOUNTER 2018-10-27 14:00 | Day surgery (SDC) | payer OTHER ==
[2018-10-27] MEDS ORDERED: hydrALAZINE 20 MG/ML VIAL SLOW IVP PRN (18:01)
--- NOTE | 2018-10-27 18:06 | PDOC.LDHP ---
Labor and Delivery H&P Chief complaint: other (Lower pelvic cramping, no CTX) HPI: EGA [address] Pham Time: 1800 HPI: 23 yo G1 at 30 weeks 2 days here for bilateral LAP. No VB, no LOF, no CTX, good FM. Denies recent trauama or sex. No issues. Review of Systems: Complete ROS performed and negative as per HPI Current gestational age (weeks): 30 (2 days) Due date: 01/03/19 Dating criteria: last menstrual period Grav: 1 Para: 0 Current complications: none Abnormal US findings: No Current medications: pre- vitamins Previous surgical history: none Allergies/Adverse Reactions: Allergies Allergy/AdvReac Type Severity Reaction Status Date / Time No Known Allergies Allergy Verified 09/18/18 05:09 - Physical Exam Vital signs reviewed and normal: yes (117/85) General: NAD Heart: RRR Lungs: CTAB Abdomen: gravid Extremeties: no edema FHT: category 1 - Assessment 30 weeks 2 days probable discomforts of . I do not suspect PTL at this time. She was first evaluated in the ED for "chest pain" which was negative workup. No suspicion of acute pulmonary process. - Plan Plan: observation in L&D (I have ordered a UA and TVUS for screen)
[2018-10-27 18:27] VITALS: BMI 28.3
[2018-10-27 18:32] LABS: Bilirubin Negative (Negative); Blood, Urine Negative (Negative); Clarity Turbid (Clear); Glucose, Urine (Dipstick) Normal (Negative); Leukocyte 250 Leu/uL (Negative); Nitrite Negative (Negative); Protein, Urine (Dipstick) Negative (Neg-Trace); RBC/HPF 0-3 HPF (0-3); Urobilinogen Normal mg/dL (Less than 2); WBC/HPF 0-3 HPF (0-3)
[2018-10-27 18:47] LABS: Bacteria/HPF 1+ HPF (None Seen); Transitional Epithelial 0-3 HPF (None Seen)
[2018-10-27 18:48] LABS: Urine Culture Reflex No No
--- NOTE | 2018-10-27 19:03 | PDOC.EVN ---
Event Note - Event Note Event Note: Sono TVU of CX is normal length (>4cm). UA with possible UTI...but also containinated. Nonetheless, I will RX with macrobid 100mg po BID X 5 days as this may be causing some of her discomfort. reflex UCX pending. Mild diastolics of high 80s noted...no sxs. I have recommended recheck in 24-[address] garcia.
--- NOTE | 2018-10-27 19:35 | ULT ---
US OB Ltd HISTORY: Evaluation of cervical canal length. COMPARISON: None. FINDINGS: A single viable intrauterine in a cephalic presentation is noted. heart rat e is 145 bpm. The placenta is anterior in location without evidence of previa. The cervical canal length is 5.2 cm. IMPRESSION: Cervical canal length of 5.2 cm
== END 2018-10-27 19:15 | disposition home or self-care (01) ==
LOC: ERS 14:00 → L&D/OP 17:19
PROVIDERS: ATTEND Family Medicine
DX: O99.89 Other specified diseases and conditions complicating pregnancy, childbirth and the puerperium (principal); R10.2 Pelvic and perineal pain; Z3A.30 30 weeks gestation of pregnancy
CPT/HCPCS: 76815; 81001; 93005; 99283

== ENCOUNTER 2018-11-11 15:27 | Day surgery (SDC) | payer OTHER ==
[2018-11-11 15:57] VITALS: BP 127/78; TEMP 98.6; BMI 29.2
[2018-11-11] MEDS ORDERED: hydrALAZINE 20 MG/ML VIAL SLOW IVP PRN (16:37)
--- NOTE | 2018-11-11 19:55 | ULT ---
OBSTETRIC SONOGRAM LIMITED: 11/11/18 HISTORY: Evaluate cervical length. FINDINGS: Translabial evaluation performed. Cervix is closed and 3.7 cm. POS: [facility]
--- NOTE | 2018-11-12 10:38 | PRG ---
DATE OF SERVICE: 11/11/2018 PRIMARY OB: Sebastián Pham MD CHIEF COMPLAINT: Pelvic pains. HISTORY OF PRESENT ILLNESS: The patient is a 23-year-old, G1, P0 female with an intrauterine at 32 weeks and 3 days, who came from work today after having difficulty with pelvic pain. The patient has presented with similar complaints in prior weeks and was diagnosed with ligamentous pain. The patient reports that it is the same pain. She does feel cramps every now and again, and work had released her to come to the hospital for evaluation. The patient denies any vaginal bleeding or discharge. She denies any falls, recent illness, fever, headache, chest pain, shortness of breath, nausea, vomiting, diarrhea or constipation. She denies any new rashes, hip problems, knee problems or muscle weakness. Again, denies vaginal bleeding or leakage of fluid. Denies urinary urgency or frequency. The patient will see Dr. Pham next Friday and just saw him last week. PAST MEDICAL HISTORY: Negative. PAST SURGICAL HISTORY: Appendectomy. SOCIAL HISTORY: Denies drug, alcohol or tobacco use. OB LABS: Unavailable at time of dictation. MEDICATIONS: vitamins. REVIEW OF SYSTEMS: Per HPI. ALLERGIES: NO KNOWN DRUG ALLERGIES. PHYSICAL EXAMINATION: VITAL SIGNS: Blood pressure 127/78, heart rate 69, respiratory rate 16, and temperature 98.5. GENERAL: She appears to be in no acute distress. She is alert, oriented, cooperative, and pleasant to interact with. HEAD: Normocephalic and atraumatic. LUNGS: Clear to auscultation bilaterally. HEART: Regular rate and rhythm. ABDOMEN: Gravid. She does have tenderness in the lower pelvis with deviation of the uterus to the left and right consistent with ligamentous pain. EXTREMITIES: Nontender and nonedematous. : Speculum exam is also very tender for her in the vaginal wall. Vulva is without masses, lesions or erythema. Vagina is moist. Cervix is visibly closed. fibronectin was collected. On digital exam, cervix is closed and thick, and no presenting part palpable. AmniSure test was lost in transport and was unable to collect another one given the recent vaginal exam and cervical check. Pelvic ultrasound for cervical length demonstrates a cervix of 3.8 cm in length. heart tracing shows the fetus with a baseline in the 130s with moderate long-term variability, positive 15 x 15 accelerations, no decelerations. Tocometer showing some irritability. ASSESSMENT AND PLAN: The patient is a 23-year-old female with an intrauterine at 32 weeks and 3 days, having persistent lower pelvic pain, consistent with musculoskeletal pains of . She has no evidence of labor at this time. fibronectin was collected, though not able to be run as the specimen was lost in transport somehow. The patient is given reassurance. She was counseled to try using a belt as this may help give some extra added support to the uterus at work. The patient is being discharged home with reassurance. She is taking Tylenol on a regular basis. Again, we had counseled limitation of 1 g of Tylenol 3 times a day. The patient has an appointment with Dr. Pham next week. Job ID: [id number]
== END 2018-11-11 19:10 | disposition home or self-care (01) ==
LOC: L&D/OP 15:27
PROVIDERS: ATTEND Family Medicine
DX: O99.89 Other specified diseases and conditions complicating pregnancy, childbirth and the puerperium (principal); R10.2 Pelvic and perineal pain; Z3A.32 32 weeks gestation of pregnancy
CPT/HCPCS: 76815; 99284

== ENCOUNTER 2018-11-17 10:01 | Inpatient (IN) | payer OTHER ==
[2018-11-17 10:30] VITALS: BMI 30.5
[2018-11-17] MEDS ORDERED: hydrALAZINE 20 MG/ML VIAL SLOW IVP PRN ×2 (10:49→11:44)
[2018-11-17 11:27] LABS: Hemoglobin 12.2 g/dL (12.0-16.0); Mean Corpuscular HGB CONC 35.2 g/dL (32.0-36.0); Mean Corpuscular Hemoglobin 31.4 pg (27.0-31.0); Mean Corpuscular Volume 89.2 fL (78.0-98.0); Mean Platelet Volume 9.6 fL (7.4-10.4); Platelet Count 178 thou/uL (130-400); RBC Distribution Width 11.4 % (11.5-14.5); Red Blood Cell (RBC) Count 3.87 mill/uL (4.20-5.40); White Blood Cell (WBC) Count 6.5 thou/uL (4.8-10.8)
[2018-11-17 11:39] LABS: ALT (SGPT) 13 U/L (8-55); AST (SGOT) 16 U/L (5-34); Alkaline Phosphatase 197 U/L (40-150); Anion Gap 10 mmol/L (10-20); BUN (Urea Nitrogen) 10 mg/dL (7.0-18.7); Bilirubin, Total 0.2 mg/dL (0.2-1.2); Calc. Creatinine Clearance 152 mL/min (70-130); Calcium 9.1 mg/dL (7.8-10.44); Carbon Dioxide 24 mmol/L (22-29); Chloride 108 mmol/L (98-107); Estimated GFR-MDRD Greater than 90; Globulin 2.9 g/dL (2.4-3.5); Glucose 76 mg/dL (70-105); Potassium 3.8 mmol/L (3.5-5.1); Protein, Total 5.9 g/dL (6.0-8.3); Sodium 138 mmol/L (136-145)
[2018-11-17] MEDS ORDERED: Ondansetron PF 4 MG/2 ML Vial IVP PRN (11:44)
[2018-11-17] MEDS ORDERED: Butorphanol Tartrate 1 MG/ML VIAL SLOW IVP PRN (11:44)
[2018-11-17] MEDS ORDERED: Betamet Acet/Betamet Na Ph 30 MG/5 ML VIAL IM SCH (12:00)
[2018-11-17] MEDS ORDERED: Betamet Acet/Betamet Na Ph 30 MG/5 ML VIAL ONE (12:18)
[2018-11-17] MEDS: Betamet Acet/Betamet Na Ph 30 MG/5 ML VIAL IM SCH (12:27)
--- NOTE | 2018-11-17 16:29 | ULT ---
ULTRASOUND BIOPHYSICAL PROFILE: 11/17/18 HISTORY: Hypertension. FINDINGS: A single live intrauterine gestation is seen with a heart rate of 150 beats per minute. GRABIEL me asures 13.7 cm. The placenta is anteriorly located without evidence of placenta previa. BIOPHYSICAL PROFILE: tone: 2 breathin movements: 2 Amniotic fluid: 2 IMPRESSION: Ultrasound with biophysical profile score is 8 out of 8. POS: [facility]
[2018-11-18 10:41] LABS: Urine Total Volume 2000 mL (600-1600)
[2018-11-18 11:01] LABS: Protein, Urine Less than 10 mg/dL (1-14)
[2018-11-18] MEDS: Betamet Acet/Betamet Na Ph 30 MG/5 ML VIAL IM SCH (12:44)
[2018-11-19] MEDS: hydrALAZINE 20 MG/ML VIAL SLOW IVP PRN (06:19)
[2018-11-20 05:18] LABS: Hemoglobin 11.3 g/dL (12.0-16.0); Mean Corpuscular HGB CONC 34.7 g/dL (32.0-36.0); Mean Corpuscular Hemoglobin 31.2 pg (27.0-31.0); Mean Platelet Volume 9.8 fL (7.4-10.4); Platelet Count 191 thou/uL (130-400); RBC Distribution Width 11.5 % (11.5-14.5); Red Blood Cell (RBC) Count 3.63 mill/uL (4.20-5.40); White Blood Cell (WBC) Count 10.1 thou/uL (4.8-10.8)
[2018-11-20 05:35] LABS: ALT (SGPT) 27 U/L (8-55); AST (SGOT) 27 U/L (5-34); Albumin 2.9 g/dL (3.5-5.0); Alkaline Phosphatase 169 U/L (40-150); Anion Gap 9 mmol/L (10-20); BUN (Urea Nitrogen) 8 mg/dL (7.0-18.7); Bilirubin, Total 0.2 mg/dL (0.2-1.2); Calc. Creatinine Clearance 156 mL/min (70-130); Calcium 8.6 mg/dL (7.8-10.44); Carbon Dioxide 25 mmol/L (22-29); Chloride 106 mmol/L (98-107); Estimated GFR-MDRD Greater than 90; Globulin 2.7 g/dL (2.4-3.5); Glucose 91 mg/dL (70-105); Potassium 4.2 mmol/L (3.5-5.1); Protein, Total 5.6 g/dL (6.0-8.3); Sodium 136 mmol/L (136-145)
[2018-11-20] MEDS ORDERED: hydrALAZINE 20 MG/ML VIAL ONE (09:54)
[2018-11-20] MEDS: hydrALAZINE 20 MG/ML VIAL SLOW IVP PRN (09:58)
[2018-11-20] MEDS ORDERED: hydrALAZINE 20 MG/ML VIAL SLOW IVP SCH (10:15)
[2018-11-22] MEDS: hydrALAZINE 20 MG/ML VIAL SLOW IVP SCH ×2 (09:20→09:37)
[2018-11-22] MEDS ORDERED: Ondansetron PF 4 MG/2 ML Vial IVP PRN (15:25)
[2018-11-22] MEDS ORDERED: Promethazine HCl 25 MG/ML VIAL IM PRN (15:25)
[2018-11-22] MEDS ORDERED: Carboprost 250 MCG/ML AMP IM PRN (15:25)
[2018-11-22] MEDS ORDERED: NS / Oxytocin 40 units/1000ml 1,000 ML IV PRN (15:25)
[2018-11-22] MEDS ORDERED: Ibuprofen 800 MG TAB PO PRN (15:25)
[2018-11-22] MEDS ORDERED: Diphenoxylate HCl/Atropine Tablet PO PRN (15:25)
[2018-11-22] MEDS ORDERED: Lidocaine 1% (PF) 30 ML VIAL SC PRN (15:25)
[2018-11-22] MEDS ORDERED: Misoprostol 200 MCG TAB PR PRN (15:25)
[2018-11-22] MEDS ORDERED: hydrALAZINE 20 MG/ML VIAL SLOW IVP PRN (15:25)
[2018-11-22] MEDS ORDERED: HYDROcodone/Acetaminophen 5/325 mg Tablet PO PRN (15:25)
[2018-11-22] MEDS ORDERED: Calcium Gluc 4.6 MEQ/10 ML (100 MG/ML) SLOW IVP PRN (15:29)
[2018-11-22] MEDS ORDERED: Penicillin G Potassium 5 MILL.UNITS in Sodium Chloride 0.9% 100 ML IVPB SCH (15:30)
[2018-11-22] MEDS ORDERED: NS w/ Oxytocin 10 units 500 ML IV SCH ×2 (15:30)
[2018-11-22 16:17] LABS: Hemoglobin 11.3 g/dL (12.0-16.0); Mean Corpuscular HGB CONC 35.2 g/dL (32.0-36.0); Mean Corpuscular Hemoglobin 31.5 pg (27.0-31.0); Mean Corpuscular Volume 89.4 fL (78.0-98.0); Mean Platelet Volume 9.8 fL (7.4-10.4); Platelet Count 169 thou/uL (130-400); RBC Distribution Width 11.5 % (11.5-14.5); Red Blood Cell (RBC) Count 3.58 mill/uL (4.20-5.40); White Blood Cell (WBC) Count 9.2 thou/uL (4.8-10.8)
[2018-11-22 16:56] LABS: HBSAg Index 0.17 S/CO (0-0.99); Hep B Surf Ag Non-Reactive S/CO (NonReactive); Syphilis Antibody Nonreactive (Nonreactive); Syphilis Antibody Index 0.08 S/CO (<1.00 Non-Reactive)
[2018-11-22] MEDS: Lactated Ringer's 1,000 ML IV SCH (17:32)
[2018-11-22] MEDS ORDERED: Magnesium Sulfate 20 gm/500 ml 20 GM/500 ML BAG IVPB SCH (18:30)
[2018-11-22] MEDS ORDERED: Magnesium Sulfate 20 GM/WATER 500 ML BAG IVPB SCH (18:30)
[2018-11-22] MEDS: Misoprostol 100 MCG TAB PO SCH ×2 (18:34→23:15)
[2018-11-23] MEDS: Misoprostol 100 MCG TAB PO SCH ×2 (03:15→07:59)
[2018-11-23] MEDS: Penicillin G 2.5 MILL.units 2.5 MILL.UNITS in Premix Bag 1 BAG IVPB SCH ×2 (04:10→04:11)
[2018-11-23] MEDS ORDERED: Acetaminophen 325 MG TAB PO SCH (04:15)
[2018-11-23] MEDS: Lactated Ringer's 1,000 ML IV SCH (05:24)
[2018-11-23] MEDS ORDERED: Bicitra 30 ML UDCUP ONE (13:48)
[2018-11-23] MEDS ORDERED: Ondansetron PF 4 MG/2 ML Vial ONE ×2 (13:55→14:11)
[2018-11-23] MEDS ORDERED: PHENYLEPHRINE-NS 100 MCG/ML 10 ML SYRINGE ONE ×2 (13:55→14:12)
[2018-11-23] MEDS ORDERED: Dexamethasone 20 MG/5 ML VIAL ONE (13:55)
[2018-11-23] MEDS ORDERED: Oxytocin 10 UNITS/ML VIAL ONE (14:11)
[2018-11-23] MEDS ORDERED: Dexamethasone 4 mg/ml Vial ONE (14:11)
[2018-11-23] MEDS ORDERED: MORPHINE 5 MG/10 ML PF VIAL ONE (14:11)
[2018-11-23] MEDS ORDERED: HYDROmorphone 2 MG/ML VIAL SLOW IVP PRN (14:12)
[2018-11-23] MEDS ORDERED: diphenhydrAMINE 50 MG/ML VIAL IVP PRN (14:12)
[2018-11-23] MEDS ORDERED: Ketorolac Tromethamine 30 MG/ML VIAL IVP PRN (14:12)
[2018-11-23] MEDS ORDERED: Promethazine HCl 25 MG/ML VIAL IM PRN ×2 (14:12→15:54)
[2018-11-23] MEDS ORDERED: Promethazine HCl 25 MG SUPP PR PRN (14:12)
[2018-11-23] MEDS ORDERED: Ondansetron HCl/PF 4 MG/2 ML Vial IVP PRN (14:12)
[2018-11-23] MEDS ORDERED: Naloxone HCl 0.4 mg/ml Vial IV PRN (14:12)
[2018-11-23] MEDS ORDERED: Ondansetron PF 4 MG/2 ML Vial IVP PRN ×2 (14:12→15:54)
[2018-11-23] MEDS ORDERED: Meperidine HCl/PF 25 MG/ML VIAL SLOW IVP PRN (14:12)
[2018-11-23] MEDS ORDERED: ePHEDrine/0.9% NaCl/PF SYRINGE 50 mg/10 ml ONE (14:12)
[2018-11-23] MEDS ORDERED: L&D-Morphine 4 MG/ML VIAL SLOW IVP PRN (14:12)
[2018-11-23] MEDS ORDERED: Naloxone HCl 0.4 mg/ml Vial IVP PRN ×2 (14:12)
[2018-11-23] MEDS ORDERED: Communication Order-Pharmacy FS SCH (14:15)
[2018-11-23] MEDS ORDERED: Ketorolac Tromethamine 30 MG/ML VIAL IVP SCH (14:15)
[2018-11-23] MEDS ORDERED: Carboprost 250 MCG/ML AMP ONE (14:48)
[2018-11-23] MEDS ORDERED: cloNIDine 0.1 MG TAB PO PRN (15:52)
[2018-11-23] MEDS ORDERED: hydrALAZINE 20 MG/ML VIAL SLOW IVP PRN ×2 (15:54)
[2018-11-23] MEDS ORDERED: diphenhydrAMINE 25 MG CAP PO PRN (15:54)
[2018-11-23] MEDS ORDERED: Meperidine HCl/PF 25 MG/ML VIAL IM PRN (15:54)
[2018-11-23] MEDS ORDERED: NS / Oxytocin 40 units/1000ml 1,000 ML IV SCH (15:54)
[2018-11-23] MEDS ORDERED: Calcium Gluconate 4.6 MEQ in Sodium Chloride 0.9% 100 ML IVPB PRN (15:54)
[2018-11-23] MEDS ORDERED: Bisacodyl 10 MG SUPP PR PRN (15:54)
[2018-11-23] MEDS: hydrALAZINE 20 MG/ML VIAL SLOW IVP PRN ×2 (16:54→17:13)
[2018-11-23] MEDS: HYDROcodone/Acetaminophen 5/325 mg Tablet PO PRN (17:03)
--- NOTE | 2018-11-23 17:34 | OP ---
DATE OF PROCEDURE: 11/23/2018 RESIDENT SURGEON: Meliza Wilkins MD PROCEDURE PERFORMED: Primary low transverse . PREOPERATIVE DIAGNOSES: 1. Single intrauterine . 2. Severe preeclampsia. 3. Failed induction. POSTOPERATIVE DIAGNOSES: 1. Single intrauterine . 2. Severe preeclampsia. 3. Failed induction. ANESTHESIA: Spinal. INDICATIONS FOR PROCEDURE: The patient is a 23-year-old G1, P0 female at 34.1 weeks gestation, who presents with failed induction, for severe preeclampsia. DESCRIPTION OF PROCEDURE: After risks, benefits, and alternatives were explained to the patient, she has given informed consent. Preop antibiotics included cefazolin 2 g IV. The patient was taken to the operating room and spinal anesthesia was initiated. She was placed in supine position with a left tilt and prepped and draped in usual sterile fashion. A Pfannenstiel incision was made with a scalpel and carried down to the level of the fascia, which was sharply nicked. The fascia was cut and extended bilaterally with Larsen scissors. The inferior and superior edges of the cut fascia were elevated with Bret clamps and the underlying rectus muscles were bluntly dissected free. The recti were divided digitally and retracted manually. The peritoneum was entered bluntly and retracted manually. Bladder blade was placed. A low transverse score was made with a scalpel and the uterus was entered in midline. Clear fluid was seen. The hysterotomy was extended manually. The was noted to be vertex and easily delivered with fundal pressure. Mouth and nares were bulb suctioned. Cord clamped and cut and grossly normal female was handed to waiting nurse. Cord blood was obtained. Placenta was manually extracted, found to be intact with three vessel cord and discarded. The uterus was externalized and endometrium was curetted with a dry lap. The uterus was closed with a running 0 Vicryl, followed by [id number] 0 Vicryl. Following this, hemostasis was noted. The uterus was externalized and the hysterotomy was again noted to be hemostatic. The abdomen was irrigated with saline and suctioned free of clots. Seprafilm was placed on the uterus. The uterus was internalized and the hysterotomy was again noted to be hemostatic. The peritoneum was closed with 3-0 PDS. The fascia was closed with a running nonlocking 3-0 PDS suture. The subcu tissue was irrigated and there were no bleeders. The subcu tissue was closed with 3-0 Vicryl. The skin was approximated with marty and pressure dressing was placed. All counts were correct. The patient tolerated the procedure well and was taken back to her labor and delivery room in stable condition. QBL: 548 mL. COMPLICATION: None. SPECIMEN: Cord blood to be sent for blood type. FINDINGS: 1. Grossly normal female . 2. Grossly normal placenta with three vessel cord discarded. DRAINS: Garcia to gravity draining clear urine. Job ID: [id number]
[2018-11-23] MEDS ORDERED: NS / Oxytocin 40 units/1000ml 1,000 ML ONE (17:53)
[2018-11-24] MEDS ORDERED: Magnesium Sulfate 20 gm/500 ml 20 GM/500 ML BAG ONE ×2 (00:11→09:52)
[2018-11-24] MEDS: Ketorolac Tromethamine 30 MG/ML VIAL IVP SCH ×3 (00:16→14:17)
[2018-11-24] MEDS: Docusate Calcium (SURFAK) 240 MG CAP PO SCH ×3 (00:17→21:36)
[2018-11-24] MEDS: Lactated Ringer's 1,000 ML IV SCH ×2 (07:30→14:20)
[2018-11-24] MEDS: Ferrous Sulfate 325 MG TAB PO SCH ×3 (07:31→15:46)
[2018-11-24 07:35] LABS: Hemoglobin 12.8 g/dL (12.0-16.0); Mean Corpuscular HGB CONC 33.8 g/dL (32.0-36.0); Mean Corpuscular Hemoglobin 30.6 pg (27.0-31.0); Mean Corpuscular Volume 90.4 fL (78.0-98.0); Mean Platelet Volume 9.4 fL (7.4-10.4); Platelet Count 199 thou/uL (130-400); RBC Distribution Width 11.9 % (11.5-14.5); Red Blood Cell (RBC) Count 4.19 mill/uL (4.20-5.40); White Blood Cell (WBC) Count 13.9 thou/uL (4.8-10.8)
[2018-11-24] MEDS ORDERED: Magnesium Sulfate 20 gm/500 ml 20 GM/500 ML BAG IVPB SCH (12:30)
[2018-11-24] MEDS: Ibuprofen 800 MG TAB PO SCH ×2 (13:02→21:36)
[2018-11-24] MEDS: Prenatal Vitamin 1 TAB PO SCH (14:17)
[2018-11-24] MEDS: Penicillin G 2.5 MILL.units 2.5 MILL.UNITS in Premix Bag 1 BAG IVPB SCH ×2 (14:19→14:20)
[2018-11-24] MEDS: HYDROcodone/Acetaminophen 5/325 mg Tablet PO PRN ×2 (15:16→20:25)
[2018-11-24] MEDS ORDERED: Adacel (T-DAP) 0.5 ML SYRINGE IM ONE (15:54)
[2018-11-24] MEDS: Simethicone Chewable 80 MG TAB PO PRN (20:25)
[2018-11-25] MEDS: HYDROcodone/Acetaminophen 5/325 mg Tablet PO PRN ×4 (01:57→21:15)
[2018-11-25] MEDS: Simethicone Chewable 80 MG TAB PO PRN ×2 (04:54→21:14)
[2018-11-25] MEDS: Ibuprofen 800 MG TAB PO SCH ×3 (04:54→21:15)
[2018-11-25] MEDS: Ferrous Sulfate 325 MG TAB PO SCH ×2 (07:27→16:16)
[2018-11-25] MEDS: cloNIDine 0.1 MG TAB PO PRN (08:27)
[2018-11-25] MEDS: Prenatal Vitamin 1 TAB PO SCH (08:27)
[2018-11-25] MEDS: Docusate Calcium (SURFAK) 240 MG CAP PO SCH ×2 (08:27→21:14)
[2018-11-26] MEDS: cloNIDine 0.1 MG TAB PO PRN ×2 (00:57→08:06)
[2018-11-26] MEDS: Ibuprofen 800 MG TAB PO SCH ×3 (05:32→23:01)
[2018-11-26] MEDS: Ferrous Sulfate 325 MG TAB PO SCH ×2 (07:21→16:25)
[2018-11-26] MEDS: HYDROcodone/Acetaminophen 5/325 mg Tablet PO PRN ×3 (08:07→23:02)
[2018-11-26] MEDS: Prenatal Vitamin 1 TAB PO SCH (08:07)
[2018-11-26] MEDS: Docusate Calcium (SURFAK) 240 MG CAP PO SCH ×2 (08:07→23:01)
[2018-11-26] MEDS ORDERED: Sodium Chloride 0.9% 10 ML ONE (08:28)
[2018-11-26] MEDS ORDERED: Losartan/Hydrochlorothiazide 100 mg/25 mg Tablet PO SCH (09:00)
[2018-11-27] MEDS: cloNIDine 0.1 MG TAB PO PRN ×2 (00:48→11:37)
[2018-11-27] MEDS: Ibuprofen 800 MG TAB PO SCH ×2 (05:35→14:18)
[2018-11-27] MEDS: HYDROcodone/Acetaminophen 5/325 mg Tablet PO PRN (05:35)
[2018-11-27] MEDS: Ferrous Sulfate 325 MG TAB PO SCH ×2 (07:40→16:08)
[2018-11-27] MEDS: Docusate Calcium (SURFAK) 240 MG CAP PO SCH (08:07)
[2018-11-27] MEDS: Prenatal Vitamin 1 TAB PO SCH (08:07)
[2018-11-27] MEDS ORDERED: Losartan/Hydrochlorothiazide 100 mg/25 mg Tablet PO SCH (09:00)
[2018-11-27 13:57] VITALS: BP 140/85; TEMP 98.7
== END 2018-11-27 18:00 | disposition home or self-care (01) | DRG 788 ==
LOC: L&D/OP 10:01 → L&D 12:47 → OBSVTOIN 12:47 → L&D 14:29 → 3SW 16:52 → L&D 11-19 12:27 → 3SW 11-24 15:14
PROVIDERS: ADMIT Family Medicine; ATTEND Family Medicine
PROC: 10D00Z1 Extraction of Products of Conception, Low, Open Approach (ICD-10-PCS; principal; 2018-11-23)
PROC: 3E0P7VZ Introduction of Hormone into Female Reproductive, Via Natural or Artificial Opening (ICD-10-PCS; 2018-11-23)
DX: O14.14 Severe pre-eclampsia complicating childbirth (principal); O61.9 Failed induction of labor, unspecified; Z3A.33 33 weeks gestation of pregnancy; Z37.0 Single live birth
CPT/HCPCS: 36415; 51702; 59025; 76815; 76819; 80053; 81003; 83735; 84156; 84550; 85027; 86780; 86850; 86900; 86901; 87340; 88307; J0360; J0690; J0702; J1100; J1885; J2274; J2405; J2590; J3475; J3490

== ENCOUNTER 2019-03-31 07:23 | Emergency (ER) | payer OTHER ==
[2019-03-31] MEDS ORDERED: Lidocaine 1% (PF) 30 ML VIAL ONE (09:37)
[2019-03-31] MEDS ORDERED: Adacel (T-DAP) 0.5 ML SYRINGE ONE (09:38)
== END 2019-03-31 10:19 | disposition home or self-care (01) ==
LOC: ERS 07:23
DX: S01.511A Laceration without foreign body of lip, initial encounter (principal); W19.XXXA Unspecified fall, initial encounter
CPT/HCPCS: 12011; 90471; 90715; J2001

== ENCOUNTER 2019-04-02 20:19 | Emergency (ER) | payer OTHER, SELFPAY | END 2019-04-02 21:45 | disposition home or self-care (01) | LOC: ERS 20:19 | DX: S01.511D Laceration without foreign body of lip, subsequent encounter (principal) | CPT/HCPCS: 99282 ==

== ENCOUNTER 2019-04-29 12:55 | Emergency (ER) | payer MEDICAID, OTHER, SELFPAY ==
[2019-04-29] MEDS ORDERED: Ketorolac Tromethamine 30 MG/ML VIAL ONE (13:51)
== END 2019-04-29 15:00 | disposition home or self-care (01) ==
LOC: ERS 12:55
DX: J11.1 Influenza due to unidentified influenza virus with other respiratory manifestations (principal)
CPT/HCPCS: 87804; 96372; 99283; J1885

== ENCOUNTER 2019-05-01 04:31 | Emergency (ER) | payer SELFPAY ==
[2019-05-01] MEDS ORDERED: Acetaminophen 500 MG TAB ONE (04:47)
[2019-05-01] MEDS ORDERED: Ibuprofen 800 MG TAB ONE (04:49)
== END 2019-05-01 05:12 | disposition home or self-care (01) ==
LOC: ERS 04:31
DX: J11.1 Influenza due to unidentified influenza virus with other respiratory manifestations (principal)
CPT/HCPCS: 99283

== ENCOUNTER 2019-09-09 10:06 | Emergency (ER) | payer OTHER, SELFPAY ==
[2019-09-10 12:10] LABS: SARS-CoV-2 MS2 Positive; SARS-CoV-2 N Gene Negative; SARS-CoV-2 S Gene Negative; SARS-CoV-2 orf1ab Negative
== END 2019-09-09 11:06 | disposition home or self-care (01) ==
LOC: ERS 10:06
DX: R19.7 Diarrhea, unspecified (principal); Z20.828 Contact with and (suspected) exposure to other viral communicable diseases
CPT/HCPCS: 87635; 99284; U0003

== ENCOUNTER 2020-10-11 09:18 | Emergency (ER) | payer SELFPAY ==
[2020-10-11 11:03] LABS: #Lymphocytes 1.3 thou/uL (1.20-3.40); #Monocytes 0.6 thou/uL (0.11-0.59); #Neutrophils 2.3 thou/uL (1.40-6.50); %Basophils 0.8 % (0.0-1.0); %Eosinophils 0.6 % (0.0-10.0); %Lymphocytes 30.6 % (21.0-51.0); %Monocytes 13.8 % (0.0-10.0); %Neutrophils 54.3 % (42.0-75.0); Hemoglobin 11.1 g/dL (12.0-16.0); Mean Corpuscular HGB CONC 34.1 g/dL (32.0-36.0); Platelet Count 372 thou/uL (130-400); RBC Distribution Width 11.8 % (11.5-14.5); Red Blood Cell (RBC) Count 3.83 mill/uL (4.20-5.40); White Blood Cell (WBC) Count 4.2 thou/uL (4.8-10.8)
[2020-10-11 12:09] LABS: Bilirubin Negative (Negative); Blood, Urine Negative (Negative); Clarity Clear (Clear); Glucose, Urine (Dipstick) Normal (Negative); Ketone, Urine Negative (Negative); Leukocyte Negative Leu/uL (Negative); Nitrite Negative (Negative); Protein, Urine (Dipstick) Negative (Neg-Trace); Specific Gravity, Urine 1.013 (1.002-1.036); Urobilinogen Normal mg/dL (Less than 2); pH, Urine 7.5 (5.0-9.0)
== END 2020-10-11 12:57 | disposition home or self-care (01) ==
LOC: ERS 09:18
DX: O26.891 Other specified pregnancy related conditions, first trimester (principal); R10.2 Pelvic and perineal pain; Z3A.01 Less than 8 weeks gestation of pregnancy
CPT/HCPCS: 36415; 76856; 81003; 84702; 85025; 93976

== ENCOUNTER 2021-05-11 08:01 | Outpatient (CLI) | payer OTHER | END 2021-05-11 08:02 | disposition home or self-care (01) | LOC: BICULT 08:01 | PROVIDERS: ATTEND Family Medicine | DX: O36.5930 Maternal care for other known or suspected poor fetal growth, third trimester, not applicable or unspecified (principal); Z3A.32 32 weeks gestation of pregnancy | CPT/HCPCS: 76805; 93975 ==

== ENCOUNTER 2022-07-05 05:27 | Emergency (ER) | payer OTHER ==
[2022-07-05] MEDS ORDERED: Ondansetron ODT 4 MG TAB ONE (05:37)
[2022-07-05 06:00] LABS: #Monocytes 0.4 thou/uL (0.11-0.59); %Eosinophils 1.1 % (0.0-10.0); %Neutrophils 57.8 % (42.0-75.0); Hemoglobin 12.7 g/dL (12.0-16.0); Mean Corpuscular HGB CONC 34.1 g/dL (32.0-36.0); Mean Corpuscular Hemoglobin 30.3 pg (27.0-31.0); Mean Corpuscular Volume 88.9 fl (78.0-98.0); Mean Platelet Volume 8.3 fL (7.4-10.4); Platelet Count 270 10x3/uL (130-400); RBC Distribution Width 11.2 % (11.5-14.5); Red Blood Cell (RBC) Count 4.19 mill/uL (4.20-5.40); White Blood Cell (WBC) Count 3.5 10x3/uL (4.8-10.8)
[2022-07-05 06:07] LABS: BHCG - Serum Negative (NEGATIVE); Pregs Control Background? CLEAR/WHITE (CLR/WHITE); Pregs Control Bar Appear? YES (CONTROL BAR)
[2022-07-05 06:12] LABS: Bilirubin Negative (Negative); Blood, Urine Negative (Negative); Clarity Clear (Clear); Glucose, Urine (Dipstick) Normal (Negative); Ketone, Urine Negative (Negative); Leukocyte Negative Leu/uL (Negative); Nitrite Negative (Negative); Protein, Urine (Dipstick) Negative (Neg-Trace); Specific Gravity, Urine 1.015 (1.002-1.036); Urobilinogen Normal mg/dL (Less than 2)
[2022-07-05 06:27] LABS: ALT (SGPT) 7 U/L (8-55); AST (SGOT) 13 U/L (5-34); Albumin 4.1 g/dL (3.5-5.0); Alkaline Phosphatase 72 U/L (40-110); Anion Gap 11 mmol/L (10-20); BUN (Urea Nitrogen) 11 mg/dL (7.0-18.7); Bilirubin, Total 0.6 mg/dL (0.2-1.2); Calc. Creatinine Clearance 0 mL/min (70-130); Carbon Dioxide 25 mmol/L (22-29); Chloride 106 mmol/L (98-107); Estimated GFR 104; Globulin 3.2 g/dL (2.4-3.5); Glucose 90 mg/dL (70-105); Potassium 3.7 mmol/L (3.5-5.1); Protein, Total 7.3 g/dL (6.0-8.3); Sodium 138 mmol/L (136-145)
== END 2022-07-05 06:45 | disposition home or self-care (01) ==
LOC: ERS 05:27
DX: B34.9 Viral infection, unspecified (principal)
CPT/HCPCS: 36415; 80053; 81003; 84703; 85025; 99284; Q0162

== ENCOUNTER 2024-12-21 05:32 | Emergency (ER) | payer OTHER ==
[2024-12-21] MEDS ORDERED: Acetaminophen 500 MG TAB ONE (07:11)
== END 2024-12-21 07:18 | disposition home or self-care (01) ==
LOC: ERS 05:32
DX: B34.9 Viral infection, unspecified (principal)
CPT/HCPCS: 87428; 99283; Q0162

== ENCOUNTER 2025-03-16 17:31 | Emergency (ER) | payer OTHER ==
[2025-03-16] MEDS ORDERED: Acetaminophen 500 MG TAB ONE (18:05)
[2025-03-16 18:07] LABS: Pregnancy Test - Urine (BHCG) Negative (Negative); Pregu Control Background? CLEAR/WHITE (CLR/WHITE); Pregu Control Bar Appear? YES (CONTROL BAR)
== END 2025-03-16 18:18 | disposition home or self-care (01) ==
LOC: ERS 17:31
DX: J10.1 Influenza due to other identified influenza virus with other respiratory manifestations (principal)
CPT/HCPCS: 81025; 99283